=== PATIENT | female | born 1965 | race Caucasian/White ===

== ENCOUNTER 2017-01-03 21:18 | Emergency (ER) | payer BC ==
[~2017-01-03 21:18] MED LIST: ALEVE220 M1 PO; ALPRAZOLAM ER2 MG PO; DICLOFENAC POTA50 MG PO; PAXIL20 MG PO; PERCOCET 5/3251 TAB PO; WELLBUTRIN SR150 MG PO; ZOFRAN4 MG PO; [UNRECOGNIZED DRUG - REMARK]
[2017-01-03] MEDS ORDERED: CYMBALTA60 M1 PO (23:24)
[2017-01-03] MEDS ORDERED: XANAX2 M1 PO (23:24)
[2017-01-03] MEDS ORDERED: TROKENDI XR50 MG PO (23:25)
[2017-01-03] MEDS ORDERED: IMITREX6 MG/0.52 SC (23:25)
[2017-01-03] MEDS ORDERED: IMITREX100 M2 PO (23:26)
[2017-01-03] MEDS ORDERED: CATAFLAM (23:26)
[2017-01-04] MEDS ORDERED: PERCOCET 5-3251 EACH PO (00:46)
[2017-01-04 01:26] LABS: URINE BILIRUBIN NEGATIVE (NEG); URINE BLOOD SMALL (NEG); URINE GLUCOSE (UA) NEGATIVE (NEG); URINE KETONE NEGATIVE (NEG); URINE LEUKOCYTE ESTERASE NEGATIVE (NEG); URINE NITRITE NEGATIVE (NEG); URINE PROTEIN NEGATIVE (NEG); URINE SPECIFIC GRAVITY 1.005 (1.003-1.030)
[2017-01-04 01:32] LABS: URINE APPEARANCE CLEAR; URINE COLOR YELLOW
[2017-01-04 01:33] LABS: URINE EPITHELIAL CELLS 0-2 /[HPF] (0-10); URINE WBC RARE /[HPF] (0-5)
[2017-01-04 01:34] LABS: URINE BACTERIA 1+
== END 2017-01-04 01:15 ==
LOC: EDMED 21:18
PROVIDERS: Emergency Medicine
PROC: 0T9B70Z Drainage of Bladder with Drainage Device, Via Natural or Artificial Opening (ICD-10-PCS; principal; 2017-01-03)
DX: R33.9 Retention of urine, unspecified (principal); Z98.890 Other specified postprocedural states; F32.9 Major depressive disorder, single episode, unspecified; F41.9 Anxiety disorder, unspecified; Z90.710 Acquired absence of both cervix and uterus; Z90.89 Acquired absence of other organs; Z79.899 Other long term (current) drug therapy